=== PATIENT | male | born 1985 | race African-American/Black ===

== ENCOUNTER 2017-05-25 13:02 | Outpatient (CLI) | payer OTHER ==
--- NOTE | 2017-05-25 16:06 | MRI ---
MRI OF RIGHT ANKLE PERFORMED WITHOUT CONTRAST ENHANCEMENT: 05/25/17 HISTORY: Patient rolled right ankle about a month ago with persistent pain. There is some mild Achilles tendi nosis noted. The sinus tarsi region is normal in appearance. Plantar fascia appears intact. The anterior extensor tendon group is normal. Peroneus longus and brevis tendons are intact. The pos terior tibialis, flexor digitorum longus and flexor hallucis longus tendons all appear unremarkable. There is some minimal edema changes just anterior to the more distal posterior tibialis tendon whic h could indicate some soft tissue injury. The ankle joint shows no signs of any osteochondral lesions of the talar dome. No signs of any ligam entous injury. IMPRESSION: 1. Mild to moderate Achilles tendinosis changes. 2. Soft tissue edema changes which are along the medial border of the talus just anterior to th e more distal posterior tibialis tendon which could indicate some soft tissue injury in this region. POS: OFF
== END 2017-05-25 13:03 | disposition home or self-care (01) ==
LOC: TBSIIMAG 13:02
PROVIDERS: ATTEND Family Medicine
DX: S93.401D Sprain of unspecified ligament of right ankle, subsequent encounter (principal); M79.89 Other specified soft tissue disorders

== ENCOUNTER 2018-02-11 08:49 | Outpatient (CLI) | payer OTHER ==
--- NOTE | 2018-02-11 11:07 | MRI ---
LEFT FOOT MRI WITHOUT IV CONTRAST: HISTORY: A 32-year-old male with a history of possible plantar plate tear. The patient complains of generalized pain in the plantar aspect of the foot, but no specific toe pain . FINDINGS: First metatarsophalangeal joint region appears unremarkable. The sesamoid bones appear within normal limits. No evidence of tenderness or ligamentous disruption. The 2nd metatarsophalangeal joint reg ion appears unremarkable. No evidence for collateral ligament tear or evidence for overt plantar shahnaz te disruption. No abnormal marrow signal. No significant intermetatarsal bursal fluid. IMPRESSION: No evidence for significant ligamentous injury, plantar plate injury, or tendinous injury involving t he 1st or 2nd metatarsophalangeal joint regions. The patient did not specifically acknowledge pain i n either the 1st or 2nd toe. No abnormal marrow signal. NO evidence for abnormal soft tissue signal to suggest fluid collection or intramuscular injury. No MRI evidence for significant acute internal derangement. POS: [facility]
== END 2018-02-11 08:50 | disposition home or self-care (01) ==
LOC: TBSIIMAG 08:49
PROVIDERS: ATTEND Podiatrist Foot & Ankle Surgery
DX: Z03.89 Encounter for observation for other suspected diseases and conditions ruled out (principal)